=== PATIENT | female | born 1985 | race American Indian/Alaskan Native ===

== ENCOUNTER 2019-11-02 10:47 | Observation (INO) | payer BC ==
--- NOTE | 2019-11-02 10:53 | History and Physical Report ---
Medications and Allergies Allergies Allergy/AdvReac Type Severity Reaction Status Date / Time No Known Allergies Allergy Verified 11/22/15 16:44 Home Medications Medication Instructions Recorded Confirmed Last Taken Type Acetaminophen/Codeine [Tylenol #3] 1 tab PO Q6H PRN #15 tab 11/20/15 Unknown Rx Sulfamethoxazole/Trimethoprim 1 each PO BID #20 tablet 11/20/15 Unknown Rx [Bactrim DS TAB] Results All other labs normal. Assessment and Plan - Patient Problems (1) Ectopic , tubal Status: Acute Qualifiers: Intrauterine status: without intrauterine Laterality: right Qualified Code(s): O00.101 - Right tubal without intrauterine Plan to address problem: -admit -labs -MXT administration -Risk, benefits, alternatives were d/w pt. question were addressed and answered.
[2019-11-02] MEDS ORDERED: ONDANSETRON 4 MG/2 ML INJ IV PRN (10:56)
[2019-11-02] MEDS ORDERED: IBUPROFEN 600 MG TAB PO PRN (10:56)
[2019-11-02] MEDS ORDERED: ACETAMINOPHEN 325 MG TAB PO PRN (10:56)
[2019-11-02 14:10] LABS: Eosinophils # (Auto) 0.2 K/mm3 (0.0-0.4); Hematocrit 35.4 % (30.3-42.9); Hemoglobin 11.3 gm/dl (10.1-14.3); Lymphocytes # (Auto) 1.7 K/mm3 (1.2-5.4); Lymphocytes % (Auto) 35.8 % (13.4-35.0); Mean Corpuscular HGB Conc 32 % (30-34); Mean Corpuscular Volume 82 fl (79-97); Monocytes # (Auto) 0.6 K/mm3 (0.0-0.8); Monocytes % (Auto) 13.2 % (0.0-7.3); Platelet Count 326 K/mm3 (140-440); Red Cell Distribution Width 13.7 % (13.2-15.2)
[2019-11-02 14:34] LABS: Alanine Aminotransferase 12 units/L (7-56); BUN/Creatinine Ratio 17; Blood Urea Nitrogen 12 mg/dL (7-17); Calcium 8.9 mg/dL (8.4-10.2); Hemolysis Index 3
[2019-11-02 17:04] VITALS: BP 121/75
== END 2019-11-02 18:21 | disposition home or self-care (01) ==
LOC: 3A 10:47 → UNDOADMOB 10:47 → OB 12:56
PROVIDERS: ADMIT Obstetrics & Gynecology; ATTEND Obstetrics & Gynecology
DX: O00.101 Right tubal pregnancy without intrauterine pregnancy (principal); Z3A.00 Weeks of gestation of pregnancy not specified
CPT/HCPCS: 36415; 80053; 84702; 85025; 86900; 86901; 96372; G0378; G0379; J9260

== ENCOUNTER 2019-11-15 12:31 | Observation (INO) | payer BC ==
[2019-11-15] MEDS ORDERED: ONDANSETRON 4 MG/2 ML INJ IV PRN (12:36)
--- NOTE | 2019-11-15 12:45 | History and Physical Report ---
History of Present Illness Date of examination: 11/15/19 Date of admission: 11/15/2019 Chief complaint: ectopic History of present illness: Pt is dx with right ectopic and was intially admitted on 11/02/2019 and did not have an appropriate drop in quant on Days #6 and 8(pt did not get lab drawn on day 4 or 7 as she was instructed due to lab at the hospital being closed and not wanting to have follow in the ER for her blood work).These draws were done in the office. I d/w repeat treatment and having quants follwed in the office. Quant drawn today Day #1 of re-treatment and will be repeated in the office on Day #4(Thursday11/18/2019) and day #7(11/21/2019) in the office. I d/w risk of failed treatment. I d/w close observation with serial quants vs re treatment. She desires repeat methotrexate injections. Several minutes (>30) spent speaking with pt regarding the injection and risk of not having or haivng in the injection. Her exam today is benign and sono today shows no change in the mass. pt does c/o mild period cramps but at this time does not report severe pain or vaginal bleeding. Past History : 2 Term Births: 0 Premature Births: 0 Para: 0 Mult. Births: 0 Prev : 0 Aborta: 1 Spont. 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 Genetic History Congenital Heart Defect: Mom: no Dad: no Edward Disease: Mom: no Dad: no Thalassemia Mom: no Dad: no Neural Tube Defect Mom: no Dad: no Down's Syndrome Mom: no Dad: no Young-Sachs Mom: no Dad: no Sickle Cell Disease/Trait Mom: no Dad: no Hemophilia Mom: no Dad: no Muscular Dystrophy Mom: no Dad: no Cystic Fibrosis Mom: no Dad: no Marco Chorea Mom: no Dad: no Mental Retardation Mom: no Dad: no Fragile X Mom: no Dad: no Other Genetic/Chromosomal Disorder Mom: no Dad: no Child w/other defect Mom: no Dad: no Enviromental Exposures Xray Exposure: no Medication, drug, or alcohol use since LMP: no Chemical/Other Exposure: no Exposure to Cat Liter: no Hx of Parvovirus (Fifth Disease): no Occupational Exposure to Children: none Active Medications: DIFLUCAN 150 MG ORAL TABLET (FLUCONAZOLE) 1 tab weekly Current Allergies: No known allergies Past History Past Medical History: other (see hpi) Past Surgical History: other (see hpi) 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) Family/Genetic History: other (see hpi) Social history: other (see hpi) Medications and Allergies Allergies Allergy/AdvReac Type Severity Reaction Status Date / Time No Known Allergies Allergy Verified 11/22/15 16:44 Home Medications Medication Instructions Recorded Confirmed Last Taken Type Acetaminophen/Codeine [Tylenol #3] 1 tab PO Q6H PRN #15 tab 11/20/15 Unknown Rx Sulfamethoxazole/Trimethoprim 1 each PO BID #20 tablet 11/20/15 Unknown Rx [Bactrim DS TAB] Active Meds: Active Medications Ondansetron HCl (Zofran) 4 mg IV Q8H PRN PRN Reason: Nausea And Vomiting Review of Systems All systems: negative - Physical Exam Cardiovascular: Normal S1, Normal S2 Lungs: Positive: Normal air movement Abdomen: Positive: normal appearance, soft. Negative: distention, tenderness, guarding Genitourinary (Female): Positive: other (see sono report) Uterus: Positive: normal size, normal contour. Negative: enlarged, tender Extremities: Positive: normal. Negative: tenderness, edema Results All other labs normal. Assessment and Plan - Patient Problems (1) Ectopic , tubal Status: Acute Qualifiers: Intrauterine status: without intrauterine Laterality: right Qualified Code(s): O00.101 - Right tubal without intrauterine Plan to address problem: -admit -methotrexate -monitor for any side affects of medication -d/c home with outpt follow up of quant.
--- NOTE | 2019-11-15 12:48 | Short Stay Summary ---
Short Stay Documentation - History Social history: other (see hpi) - Allergies and Medications Current Medications: Allergies No Known Allergies Allergy (Verified 11/22/15 16:44) Home Medications Medication Instructions Recorded Confirmed Last Taken Type Acetaminophen/Codeine [Tylenol #3] 1 tab PO Q6H PRN #15 tab 11/20/15 Unknown Rx Sulfamethoxazole/Trimethoprim 1 each PO BID #20 tablet 11/20/15 Unknown Rx [Bactrim DS TAB] Active Medications Ondansetron HCl (Zofran) 4 mg IV Q8H PRN PRN Reason: Nausea And Vomiting - Discharge Diagnoses (1) Ectopic , tubal Status: Acute Qualifiers: Intrauterine status: without intrauterine Laterality: right Qualified Code(s): O00.101 - Right tubal without intrauterine Short Stay Discharge Plan Follow up with: ALEYDA SIDDIQUI MD [Primary Care Provider] - 7 Days
--- NOTE | 2019-11-15 15:30 | Discharge Summary ---
Providers - Providers Date of Admission: 11/15/19 14:35 Date of discharge: 11/15/19 Attending physician: ALEYDA SIDDIQUI Primary care physician: ALEYDA SIDDIQUI Hospitalization Reason for admission: other (treatement for ectopic pregnancye) Discharge diagnosis: other (ectopic ) Hospital course: Pt admitted for second administration of methotrexate due to not having the appropriate drop in quant with initial administration on 11/02/2019. She will be d/c home after monitoring to be sure she does not have a reaction to the medication. pt has follow apt scheduled in the office on 11/18/2019 or quant which will be day #4 from second administration. Condition at discharge: Good Disposition: DC-[id number] TO HOME OR SELFCARE - Discharge Diagnoses (1) Ectopic , tubal Status: Acute Qualifiers: Intrauterine status: without intrauterine Laterality: right Qualified Code(s): O00.101 - Right tubal without intrauterine Plan - Provider Discharge Summary Additional instructions: [] Smoking cessation referral if applicable(refer to patient education folder for contact #) [] Refer to [facility] Booklet Call your doctor immediately for: * Fever > 100.5 * Heavy vaginal bleeding ( >1 pad per hour) * Severe persistent headache * Shortness of breath * Reddened, hot, painful area to leg or breast * Drainage or odor from incision. * Keep incision clean and dry at all times and follow doctor's instructions regarding bathing/showering - Follow up plan Follow up: ALEYDA SIDDIQUI MD [Primary Care Provider] - 7 Days
[2019-11-15 15:35] LABS: Alanine Aminotransferase 22 units/L (7-56); Albumin 4.1 g/dL (3.9-5); BUN/Creatinine Ratio 20; Blood Urea Nitrogen 14 mg/dL (7-17); Calcium 9.2 mg/dL (8.4-10.2); Hemolysis Index 15
[2019-11-15 17:24] VITALS: BP 114/68
== END 2019-11-15 18:05 | disposition home or self-care (01) ==
LOC: UNDOADMOB 12:31 → 3A 12:31 → OB 14:35
PROVIDERS: ADMIT Obstetrics & Gynecology; ATTEND Obstetrics & Gynecology
DX: O00.101 Right tubal pregnancy without intrauterine pregnancy (principal); Z79.899 Other long term (current) drug therapy; Z87.891 Personal history of nicotine dependence; Z3A.00 Weeks of gestation of pregnancy not specified
CPT/HCPCS: 36415; 80053; 96372; G0378; G0379; J9260